=== PATIENT | female | born 1935 | race Two or more races ===

== ENCOUNTER 2018-09-30 07:33 | Day surgery (SDC) | payer OTHER | END 2018-09-30 13:20 | disposition home or self-care (01) | LOC: AMB-ENDOS 07:33 → CIR.AMB 11:30 → AMB-ENDOS 11:30 | DX: K64.1 Second degree hemorrhoids (principal) ==

== ENCOUNTER 2019-02-13 09:17 | Inpatient (IN) | payer OTHER ==
[~2019-02-13] VITALS: Ht 144.8 cm; Wt 47.2 kg
[2019-02-28] MEDS ORDERED: IBUPROFEN200 MG PO (10:06)
== END 2019-03-14 13:19 | disposition home or self-care (01) | DRG 331 ==
LOC: SURH 02-28 10:00 → O/R 03-07 06:19 → SURG 03-07 06:19 → SURH 03-07 10:00 → SURG 03-07 13:14
PROVIDERS: ADMIT Colon & Rectal Surgery
PROC: 0WUF47Z Supplement Abdominal Wall with Autologous Tissue Substitute, Percutaneous Endoscopic Approach (ICD-10-PCS; 2019-03-07)
PROC: 0DJD8ZZ Inspection of Lower Intestinal Tract, Via Natural or Artificial Opening Endoscopic (ICD-10-PCS; 2019-03-07)
PROC: 0DTN4ZZ Resection of Sigmoid Colon, Percutaneous Endoscopic Approach (ICD-10-PCS; principal; 2019-03-07 10:00)
DX: K57.20 Diverticulitis of large intestine with perforation and abscess without bleeding (principal); K64.2 Third degree hemorrhoids

== ENCOUNTER 2019-02-13 09:37 | Outpatient (CLI) | payer OTHER | END 2019-02-13 09:39 | disposition home or self-care (01) | LOC: RAD 09:37 | DX: K57.20 Diverticulitis of large intestine with perforation and abscess without bleeding (principal); K57.32 Diverticulitis of large intestine without perforation or abscess without bleeding; K92.1 Melena; K59.02 Outlet dysfunction constipation ==

== ENCOUNTER → 2019-02-27 11:14 | Outpatient (CLI) | payer OTHER ==
[~2019-02-27 11:14] MED LIST: IBUPROFEN200 MG PO
== END | disposition home or self-care (01) ==
LOC: EKG 11:14
DX: I10 Essential (primary) hypertension (principal)

== ENCOUNTER 2020-04-05 06:00 | Day surgery (SDC) | payer OTHER | END 2020-04-05 10:05 | disposition home or self-care (01) | LOC: CIR.AMB 06:00 | PROVIDERS: ATTEND Colon & Rectal Surgery | DX: K57.32 Diverticulitis of large intestine without perforation or abscess without bleeding (principal); K64.1 Second degree hemorrhoids; Z20.828 Contact with and (suspected) exposure to other viral communicable diseases ==

== ENCOUNTER 2023-11-14 13:17 | Emergency (ER) | payer OTHER ==
[~2023-11-14] VITALS: Ht 144.8 cm; Wt 59.0 kg
[2023-11-14] MEDS ORDERED: KETOROLAC TROMETHAMINE 60 MG VIAL IM STA (16:56)
[2023-11-14] MEDS ORDERED: ACETAMINOPHEN 500 MG GEL..CAP PO STA (16:57)
== END 2023-11-14 19:05 | disposition home or self-care (01) ==
LOC: ER 13:17
DX: S42.251A Displaced fracture of greater tuberosity of right humerus, initial encounter for closed fracture (principal); S50.11XA Contusion of right forearm, initial encounter; S00.33XA Contusion of nose, initial encounter; W18.39XA Other fall on same level, initial encounter; Y93.89 Activity, other specified; Y92.59 Other trade areas as the place of occurrence of the external cause; Y99.9 Unspecified external cause status
CPT/HCPCS: 70160; 73000; 73030; 73070; 73090; 96372; 99284; J1885